=== PATIENT | female | born 1960 | race Caucasian/White ===

== ENCOUNTER 2021-11-01 12:07 | Emergency (ER) | payer MEDICAID | END 2021-11-01 13:03 | disposition home or self-care (01) | LOC: JP.ED 12:07 | DX: R06.02 Shortness of breath (principal); F17.210 Nicotine dependence, cigarettes, uncomplicated | CPT/HCPCS: 99285 ==

== ENCOUNTER 2024-09-30 07:33 | Emergency (ER) | payer MEDICARE, MEDICAID ==
[2024-09-30 08:21] LABS: BASOPHILS ABSOLUTE AUTO 0.10 K/uL (0.00-0.10); BASOPHILS PERCENT AUTO 1.0 % (0.1-1.3); EOSINOPHILS ABSOLUTE AUTO 0.11 K/uL (0.00-0.40); EOSINOPHILS PERCENT AUTO 1.1 % (0.0-5.4); IMMATURE GRAN ABSOLUTE AUTO 0.03 K/uL (0.00-0.23); IMMATURE GRAN PERCENT AUTO 0.3 % (0.0-0.7); LYMPHOCYTES ABSOLUTE AUTO 3.87 K/uL (0.8-3.3); LYMPHOCYTES PERCENT AUTO 39.7 % (11.4-47.7); MONOCYTES ABSOLUTE AUTO 0.84 K/uL (0.20-0.90); MONOCYTES PERCENT AUTO 8.6 % (3.3-12.6); NEUTROPHILS ABSOLUTE AUTO 4.80 K/uL (1.0-7.6); NEUTROPHILS PERCENT AUTO 49.3 % (40.0-78.1); PLATELET COUNT,PLT 197 K/uL (130-375); RED BLOOD CELL COUNT 4.00 M/uL (3.77-5.24); WHITE BLOOD CELL COUNT,WBC 9.8 K/uL (3.2-11.0)
[2024-09-30 08:41] LABS: BLOOD UREA NITROGEN,BUN 20.0 mg/dL (7-18); CARBON DIOXIDE,CO2 28.0 mmol/L (21-32); CHLORIDE,CL 103.0 mmol/L (100-108); CREATINE KINASE,CK 58.0 U/L (26-192); CREATININE 0.6 mg/dL (0.6-1.0); EST CRCL DRUG DOSING (CG) 82.99 mL/min; ESTIMATED GFR 99.0 mL/min (>60); GLUCOSE RANDOM 114.0 mg/dL (74-106); POTASSIUM,K 4.3 mmol/L (3.6-5.2); SODIUM,NA 142.0 mmol/L (140-148)
== END 2024-09-30 09:31 | disposition home or self-care (01) ==
LOC: JP.ED 07:33
DX: S76.911A Strain of unspecified muscles, fascia and tendons at thigh level, right thigh, initial encounter (principal); F17.210 Nicotine dependence, cigarettes, uncomplicated; Z79.899 Other long term (current) drug therapy; X58.XXXA Exposure to other specified factors, initial encounter; Y93.89 Activity, other specified
CPT/HCPCS: 36415; 73562; 80048; 80307; 82550; 85025; 85379; 99283; A9270